=== PATIENT | female | born 1965 | race Caucasian/White ===

== ENCOUNTER 2017-01-12 08:14 | Outpatient (CLI) | payer BC ==
--- NOTE | 2017-01-12 13:15 | MMO ---
BILATERAL SCREENING MAMMOGRAM: Date: 01/12/17 HISTORY: Baseline. COMPARISON: None. TECHNIQUE: Bilateral screening CC and MLO mammograms. This patient's mammogram was interpreted with the assistance of computer-aided detection. FINDINGS: There are numerous bilateral breast masses. Lymph nodes are mildly prominent bilaterally. There are scattered fibroglandular densities. IMPRESSION: Bilateral breast masses are benign. BIRADS 2: Benign Finding(s) POS: YOEL
== END 2017-01-12 08:15 | disposition home or self-care (01) ==
LOC: MAMMO 08:14
PROVIDERS: ATTEND Family Medicine
DX: Z12.31 Encounter for screening mammogram for malignant neoplasm of breast (principal)
CPT/HCPCS: 77067; G0202

== ENCOUNTER 2018-03-08 07:55 | Outpatient (CLI) | payer BC | END 2018-03-08 07:56 | disposition home or self-care (01) | LOC: BICMAMMO 07:55 | PROVIDERS: ATTEND Family Medicine | DX: Z12.31 Encounter for screening mammogram for malignant neoplasm of breast (principal); N63.20 Unspecified lump in the left breast, unspecified quadrant | CPT/HCPCS: 77063; 77067 ==

== ENCOUNTER 2018-03-21 13:37 | Outpatient (CLI) | payer BC ==
--- NOTE | 2018-03-21 14:06 | ULT ---
LEFT BREAST ULTRASOUND: Date: 03/21/18 HISTORY: Abnormal mammogram of 03/08/18. FINDINGS: Sonographic evaluation of the deep left breast 9 cm from the nipple demonstrates a 1.4 cm cyst, corre sponding to the mammographic finding at the 11 o'clock position. IMPRESSION: BI-RADS Category 2 - Benign findings. Return to annual mammographic screening. POS: OFF
== END 2018-03-21 13:38 | disposition home or self-care (01) ==
LOC: BICULT 13:37
PROVIDERS: ATTEND Family Medicine
DX: N63.20 Unspecified lump in the left breast, unspecified quadrant (principal)